=== PATIENT | female | born 1990 | race Caucasian/White ===

== ENCOUNTER → 2023-02-27 11:51 | Outpatient (CLI) | payer OTHER, SELFPAY ==
--- NOTE | 2023-02-27 | DI.US.S_ITS ---
PROCEDURE: US THYROID INDICATIONS: Autoimmune thyroiditis TECHNIQUE: Real-time scanning was performed of the thyroid gland, with image documentation. COMPARISON: [facility], US, US THYROID, 11/13/2020, 13:30. FINDINGS: Right: Thyroid lobe measures 5.9 x 1.9 x 2.2 cm, and is heterogeneous in echotexture. Left: Thyroid lobe measures 5.8 x 1.5 x 1.8 cm, and is heterogeneous in echotexture. Isthmus: 1.6 mm thick. IMPRESSION: Similar appearance of heterogeneous thyroid. No nodules. Dictated by: Jay Duarte M.D. on 02/27/2023 at 14:05 Approved by: Jay Duarte M.D. on 02/27/2023 at 14:09
== END ==
PROVIDERS: PCP Registered Nurse; Referring Provider Registered Nurse; Visit Provider Registered Nurse
DX: E04.0 Nontoxic diffuse goiter (principal); E06.3 Autoimmune thyroiditis
CPT/HCPCS: 76536

== ENCOUNTER → 2025-01-21 09:28 | Outpatient (CLI) | payer OTHER, SELFPAY ==
--- NOTE | 2025-01-21 09:32 | DI.RAD.S_ITS ---
PROCEDURE: XR KNEE RT 3V INDICATIONS: LEG PAIN TECHNIQUE: 3 views of the knee were acquired. COMPARISON: None. FINDINGS: Bones: No fractures or dislocations. No suspicious bony lesions. Soft tissues: No joint effusion. No suspicious soft tissue calcifications. IMPRESSION: No acute bony abnormality or significant effusion. Dictated by: Kaylene Galvan MD, PhD on 01/21/2025 at 10:48 Approved by: Kaylene Galvan MD, PhD on 01/21/2025 at 10:48
== END ==
PROVIDERS: PCP Registered Nurse; Referring Provider Registered Nurse; Visit Provider Registered Nurse
DX: S89.91XA Unspecified injury of right lower leg, initial encounter (principal); X58.XXXA Exposure to other specified factors, initial encounter
CPT/HCPCS: 73562

== ENCOUNTER → 2025-05-12 13:56 | Outpatient (CLI) | payer OTHER, SELFPAY ==
--- NOTE | 2025-05-12 13:58 | DI.RAD.S_ITS ---
PROCEDURE: XR CHEST 2V INDICATIONS: PRODUCTIVE COUGH, DYSPNEA TECHNIQUE: 2 views of the chest were acquired. COMPARISON: None. FINDINGS: Surgical changes and devices: None. Lungs and pleura: Lungs are clear. No pleural effusions or pneumothorax. Mediastinum: Mediastinal contours are normal. Heart size is normal. Bones and chest wall: No suspicious bony abnormalities. Soft tissues appear unremarkable. IMPRESSION: No acute cardiopulmonary abnormality is seen. Dictated by: Lenore Brock M.D. on 05/12/2025 at 18:03 Approved by: Lenore Brock M.D. on 05/12/2025 at 18:03
== END ==
PROVIDERS: PCP Registered Nurse; Referring Provider Registered Nurse; Visit Provider Registered Nurse
DX: R05.2 Subacute cough (principal); R06.02 Shortness of breath
CPT/HCPCS: 71046